=== PATIENT | female | born 1960 | race Caucasian/White ===

== ENCOUNTER 2023-05-10 09:01 | Day surgery (SDC) | payer OTHER ==
[~2023-05-10 09:01] MED LIST: Lactated Ringers 1,000 ML IV SCH
[2023-05-10] MEDS ORDERED: Midazolam 1 MG/ML 2 ML SDV ONE (10:39)
[2023-05-10] MEDS ORDERED: Propofol 200 MG/20 ML SDV ONE (10:39)
[2023-05-10] MEDS ORDERED: fentaNYL 100 MCG/2 ML SDV ONE (10:39)
== END 2023-05-10 12:25 | disposition home or self-care (01) ==
LOC: VM.SDS 09:01
PROVIDERS: ATTEND Student in an Organized Health Care Education/Training Program
DX: Z12.11 Encounter for screening for malignant neoplasm of colon (principal); E03.9 Hypothyroidism, unspecified; E66.9 Obesity, unspecified; H52.10 Myopia, unspecified eye; B37.2 Candidiasis of skin and nail; Z68.41 Body mass index [BMI] 40.0-44.9, adult; Z12.4 Encounter for screening for malignant neoplasm of cervix; Z13.1 Encounter for screening for diabetes mellitus; Z13.220 Encounter for screening for lipoid disorders; Z11.4 Encounter for screening for human immunodeficiency virus [HIV]; Z79.899 Other long term (current) drug therapy; D12.3 Benign neoplasm of transverse colon
CPT/HCPCS: 00811; J2250; J2704; J3010; J7120